=== PATIENT | female | born 1985 | race Caucasian/White ===

== ENCOUNTER → 2018-11-22 15:48 | Outpatient (CLI) | payer MEDICAID, SELFPAY ==
[2018-11-22 16:10] LABS: Basophils % 0.6 % (0.1-2.0); Eosinophils # 0.3 K/mm3 (0.0-0.4); Eosinophils % 4.7 % (0.1-12.0); Hematocrit 44.5 % (37.0-47.0); Hemoglobin 14.1 g/dL (12.2-16.2); Lymphocytes # 2.3 K/mm3 (0.7-4.5); Lymphocytes % 41.3 % (10-50); Mean Corpuscular HGB Conc 31.8 g/dL (31.8-35.4); Mean Corpuscular Hemoglobin 28.7 pg (27.0-31.2); Mean Corpuscular Volume 90.5 fl (81-99); Mean Platelet Volume 8.4 fl (7.4-10.4); Monocytes # 0.4 K/mm3 (0.1-1.0); Monocytes % 7.5 % (1.7-9.3); Neutrophils # 2.6 K/mm3 (1.8-7.8); Platelet Count 245 K/mm3 (142-424); Red Blood Count 4.91 M/mm3 (4.20-5.40); Red Cell Distribution Width 14.2 % (11.5-17.5); White Blood Count 5.6 K/mm3 (4.8-10.8)
[2018-11-22 18:02] LABS: Thyroid Stimulating Hormone 2.42 uIU/ml (0.358-3.740)
== END ==
PROVIDERS: Visit Provider Obstetrics & Gynecology
DX: Z01.419 Encounter for gynecological examination (general) (routine) without abnormal findings (principal); N97.9 Female infertility, unspecified
CPT/HCPCS: 36415; 84443; 85025

== ENCOUNTER → 2018-11-26 12:37 | Outpatient (CLI) | payer MEDICAID, SELFPAY ==
--- NOTE | 2018-11-26 12:39 | US_ITS ---
PROCEDURE: US TRANSVAGINAL CLINICAL INDICATION: pelvic pain COMPARISON: No exams were available for comparison FINDINGS: Uterus is 9 by by 6 cm with a combined endometrial thickness 1 cm. There is heterogeneous area of echogenicity along the anterior aspect the body of the uterus at with a 19 mm fibroid anteriorly mm consistent fibroid. Uterus is otherwise unremarkable. The right ovary is 4 x 2.6 cm and contains a 2.7 cm cyst. Blood flow is present. The left ovary is 2.9 x 1.5 cm having small follicles with blood flow noted. There is a an 8 mm nabothian cyst. No cul-de-sac fluid is evident. IMPRESSION: 1. Mildly prominent uterus with endometrial thickness upper limits of normal 2. 2.7 cm right ovarian cyst Dictated by: Pasquale Martinez MD 11/30/2018 10:05 Signed by: <Electronically signed by Pasquale Martinez MD in [place]> 11/30/2018 10:05
== END ==
PROVIDERS: Visit Provider Obstetrics & Gynecology
DX: R10.2 Pelvic and perineal pain (principal)
CPT/HCPCS: 76830

== ENCOUNTER → 2018-12-09 13:56 | Outpatient (CLI) | payer MEDICAID, SELFPAY ==
[2018-12-09 14:01] LABS: Microscopic, Urine URINE MICROSCOPIC (MICROSCOPIC)
[2018-12-09 15:32] LABS: Basophils # 0.1 K/mm3 (0-0.2); Eosinophils # 0.3 K/mm3 (0.0-0.4); Hematocrit 45.8 % (37.0-47.0); Hemoglobin 14.3 g/dL (12.2-16.2); Lymphocytes # 3.7 K/mm3 (0.7-4.5); Lymphocytes % 50.1 % (10-50); Mean Corpuscular HGB Conc 31.2 g/dL (31.8-35.4); Mean Corpuscular Hemoglobin 27.9 pg (27.0-31.2); Mean Corpuscular Volume 89.5 fl (81-99); Mean Platelet Volume 7.9 fl (7.4-10.4); Monocytes # 0.5 K/mm3 (0.1-1.0); Monocytes % 6.5 % (1.7-9.3); Neutrophils # 2.9 K/mm3 (1.8-7.8); Neutrophils % 38.3 % (37.0-80.0); Platelet Count 390 K/mm3 (142-424); Red Blood Count 5.11 M/mm3 (4.20-5.40); Red Cell Distribution Width 14.2 % (11.5-17.5); White Blood Count 7.4 K/mm3 (4.8-10.8)
[2018-12-09 15:34] LABS: MANUAL DIFFERENTIAL MANUAL DIFFERENTIAL (MANUAL DIFF)
[2018-12-09 15:38] LABS: Appearance,Urine CLOUDY (Clear); Bilirubin,Urine Negative (Negative); Blood, Urine 3+ (Negative); Color,Urine RED (Yellow); Glucose,Urine (UA) Negative (Negative); Ketones,Urine TRACE (Negative); Leukocyte Esterase,Urine 1+ (Negative); Nitrate,Urine POSITIVE (Negative); PH,Urine 6.5 (5.0-8.5); Protein,Urine 3+ (Negative); Specific Gravity, Urine 1.025 (1.005-1.030)
[2018-12-09 15:40] LABS: HCG Qualitative, Serum Negative (Negative)
[2018-12-09 15:54] LABS: Alanine Aminotransferase 166 U/L (12-78); Albumin Level 3.5 gm/dL (3.4-5.0); Albumin/Globulin Ratio 0.9 (1.1-1.8); Alkaline Phosphatase 183 U/L (46-116); Anion Gap 8.7 mEq/L (5-15); Aspartate Amino Transferase 61 U/L (15-37); Bilirubin,Total 0.4 mg/dL (0.2-1.0); Blood Urea Nitrogen 13 mg/dL (7-18); Calcium 8.7 mg/dL (8.5-10.1); Carbon Dioxide 31 mmol/L (21.0-32.0); Chloride 103 mmol/L (98-107); Creatinine,Serum 0.76 mg/dL (0.55-1.02); Estimated Glomerular Filt Rate 87 ml/min (>60); GFR (African American) 105 ML/MIN (>60); Glucose 69 mg/dL (74-106); Potassium 4.7 mmoL/L (3.5-5.1); Sodium 138 mmol/L (136-145); Total Protein,Serum 7.5 gm/dL (6.4-8.2)
[2018-12-09 16:00] LABS: Bacteria,Urine 1+ /lpf; RBC,Urine TNTC #/hpf (0-3); Squamous Epithelial Cell,Urine Occasional #/hpf (0-5)
[2018-12-09 16:06] LABS: Eosinophils % 2 % (0-3); Hypochromasia 1+; Lymphocytes % 52 % (10-50); Monocytes % 4 % (2-9); Neutrophils % 38 % (42-76); Total Cells Counted 100
[2018-12-09 16:07] LABS: Platelet Estimate Normal
== END ==
PROVIDERS: Visit Provider Obstetrics & Gynecology
DX: N93.8 Other specified abnormal uterine and vaginal bleeding (principal); N73.6 Female pelvic peritoneal adhesions (postinfective)
CPT/HCPCS: 36415; 80053; 81001; 84703; 85007; 85025; 87086

== ENCOUNTER → 2019-02-10 10:47 | Outpatient (CLI) | payer MEDICAID, SELFPAY ==
[2019-02-10 11:23] LABS: Basophils # 0.1 K/mm3 (0-0.2); Basophils % 0.7 % (0.1-2.0); Eosinophils # 0.4 K/mm3 (0.0-0.4); Eosinophils % 5.9 % (0.1-12.0); Hematocrit 47.9 % (37.0-47.0); Hemoglobin 14.8 g/dL (12.2-16.2); Mean Corpuscular HGB Conc 30.9 g/dL (31.8-35.4); Mean Corpuscular Hemoglobin 28.4 pg (27.0-31.2); Mean Platelet Volume 8.8 fl (7.4-10.4); Monocytes # 0.4 K/mm3 (0.1-1.0); Monocytes % 6.4 % (1.7-9.3); Neutrophils # 2.9 K/mm3 (1.8-7.8); Platelet Count 254 K/mm3 (142-424); Red Blood Count 5.21 M/mm3 (4.20-5.40); Red Cell Distribution Width 14.6 % (11.5-17.5); White Blood Count 6.8 K/mm3 (4.8-10.8)
[2019-02-10 13:03] LABS: Alanine Aminotransferase 278 U/L (12-78); Albumin Level 3.9 gm/dL (3.4-5.0); Alkaline Phosphatase 200 U/L (46-116); Anion Gap 11.2 mEq/L (5-15); Aspartate Amino Transferase 94 U/L (15-37); Bilirubin,Total 0.3 mg/dL (0.2-1.0); Blood Urea Nitrogen 14 mg/dL (7-18); Calcium 9.1 mg/dL (8.5-10.1); Carbon Dioxide 30 mmol/L (21.0-32.0); Chloride 102 mmol/L (98-107); Creatinine,Serum 0.72 mg/dL (0.55-1.02); Estimated Glomerular Filt Rate 92 ml/min (>60); GFR (African American) 112 ML/MIN (>60); Globulin 3.9 gm/dl (1.3-3.2); Glucose 85 mg/dL (74-106); Potassium 4.2 mmoL/L (3.5-5.1); Sodium 139 mmol/L (136-145); Total Protein,Serum 7.8 gm/dL (6.4-8.2)
[2019-02-10 13:05] LABS: C-Reactive Protein < 0.2 mg/dL (0.0-0.9)
[2019-02-10 13:55] LABS: Erythrocyte Sedimentation Rate 8 mm/hr (0-20)
[2019-02-10 15:04] LABS: Amphetamine/Metha Screen,Urine Negative ng/mL (<1000); Barbiturates Screen,Urine Negative ng/mL (<200); Benzodiazepines Screen,Urine Negative ng/mL (<200); Cannabinoid Screen,Urine Negative ng/mL (<50); Cocaine Screen,Urine Negative ng/mL (<300); Methadone Screen,Urine Negative ng/mL (<300); Opiate Screen,Urine Negative ng/mL (<300); Phencyclidine Screen,Urine Negative ng/mL (<25)
== END ==
PROVIDERS: Visit Provider Nurse Practitioner Family
DX: Z86.19 Personal history of other infectious and parasitic diseases (principal); Z79.899 Other long term (current) drug therapy
CPT/HCPCS: 36415; 80053; 80305; 85025; 85651; 86140

== ENCOUNTER → 2019-02-23 17:03 | Outpatient (CLI) | payer MEDICAID, SELFPAY ==
--- NOTE | 2019-02-23 17:09 | XR_ITS ---
PROCEDURE: XR THORACIC SPINE 3V CLINICAL INDICATION: HX infection Upper back pain COMPARISON: No exams were available for comparison FINDINGS: There is minimal midthoracic scoliosis convex left. There is fusion of the T8 and T9 vertebral body with kyphosis at this level and some increased sclerosis of the T8-T9 vertebral body. There are mild degenerative changes in the upper thoracic spine. No acute fracture or dislocation. No lytic or blastic change. 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
== END ==
PROVIDERS: PCP Emergency Medicine; Visit Provider Nurse Practitioner Family
DX: M46.20 Osteomyelitis of vertebra, site unspecified (principal)
CPT/HCPCS: 72072

== ENCOUNTER → 2019-03-30 15:36 | Outpatient (CLI) | payer MEDICAID, SELFPAY ==
[2019-03-30 17:13] LABS: Urine Pregnancy, HCG Qual. Negative (Negative)
[2019-03-30 17:28] LABS: Basophils % 0.6 % (0.1-2.0); Eosinophils # 0.3 K/mm3 (0.0-0.4); Eosinophils % 5.7 % (0.1-12.0); Hemoglobin 14.9 g/dL (12.2-16.2); Lymphocytes # 2.3 K/mm3 (0.7-4.5); Lymphocytes % 40.2 % (10-50); Mean Corpuscular HGB Conc 32.4 g/dL (31.8-35.4); Mean Corpuscular Hemoglobin 28.8 pg (27.0-31.2); Mean Corpuscular Volume 88.8 fl (81-99); Mean Platelet Volume 9.4 fl (7.4-10.4); Monocytes # 0.4 K/mm3 (0.1-1.0); Monocytes % 6.5 % (1.7-9.3); Neutrophils # 2.7 K/mm3 (1.8-7.8); Platelet Count 249 K/mm3 (142-424); Red Blood Count 5.18 M/mm3 (4.20-5.40); Red Cell Distribution Width 13.8 % (11.5-17.5); White Blood Count 5.8 K/mm3 (4.8-10.8)
[2019-03-30 17:33] LABS: INR 0.92 (0.9-1.1); Prothrombin Time 9.6 seconds (9.4-11.8)
[2019-03-30 18:57] LABS: Alanine Aminotransferase 171 U/L (12-78); Albumin Level 3.1 gm/dL (3.4-5.0); Albumin/Globulin Ratio 0.9 (1.1-1.8); Alkaline Phosphatase 209 U/L (46-116); Anion Gap 11.7 mEq/L (5-15); Aspartate Amino Transferase 74 U/L (15-37); Bilirubin,Total 0.2 mg/dL (0.2-1.0); Blood Urea Nitrogen 8 mg/dL (7-18); Calcium 8.3 mg/dL (8.5-10.1); Carbon Dioxide 30 mmol/L (21.0-32.0); Chloride 106 mmol/L (98-107); Creatinine,Serum 0.81 mg/dL (0.55-1.02); Estimated Glomerular Filt Rate 80 ml/min (>60); GFR (African American) 97 ML/MIN (>60); Globulin 3.5 gm/dl (1.3-3.2); Glucose 70 mg/dL (74-106); Potassium 4.7 mmoL/L (3.5-5.1); Sodium 143 mmol/L (136-145); Total Protein,Serum 6.6 gm/dL (6.4-8.2)
[2019-04-01 10:09] LABS: Hep B Core Ab, Total Negative (Negative); Hep Be Ag Negative (Negative)
[2019-04-01 16:29] LABS: HIV Screen 4th Generation wRfx Non Reactive (Non Reactive); Hep A Ab, Total Positive (Negative); Hepatitis B Surf Ab Quant <3.1 mIU/mL (Immunity>9.9)
[2019-04-02 03:42] LABS: ALT (SGPT) P5P 181 IU/L (0-40); Alpha 2-Macroglobulins, Qn 185 mg/dL (110-276); Apolipoprotein A-1 143 mg/dL (116-209); Bilirubin, Total 0.1 mg/dL (0.0-1.2); Fibrosis Score 0.04 (0.00-0.21); GGT 77 IU/L (0-60); Necroinflammat Activity Grade A3-Severe activity (.); Necroinflammat Activity Score 0.71 (0.00-0.17)
[2019-04-02 05:42] LABS: Haptoglobin 185 mg/dL (33-278)
== END ==
PROVIDERS: Visit Provider Internal Medicine
DX: B18.2 Chronic viral hepatitis C (principal)
CPT/HCPCS: 36415; 80053; 81025; 81596; 85025; 85610; 86703; 86704; 86706; 86708; 87350; 87522; G0432

== ENCOUNTER 2020-06-02 20:04 | Emergency (ER) | payer MEDICAID, SELFPAY ==
[2020-06-02 20:10] VITALS: BP 130/82; PULSE 89; RESP 18; TEMP 37; O2SAT 98; BMI 26.6
--- NOTE | 2020-06-02 20:30 | HMH.EDUTC ---
[facility] [place] Clinical Impression: Dental abscess Disposition: Home, Self-Care Condition on Discharge: Good Instructions: Tooth Abscess, Amoxicillin and Clavulanic Acid Additional Instructions: Take antibiotics as prescribed Make sure to follow up with Dentist as soon as possible, call on Thursday for appointment Over the counter Motrin as directed on package may help with pain, may take Tylenol in between doses of Ibuprofen if something else is needed for pain Follow up with your Family Doctor if no improvement or any worsening of symptoms Return if needed Straight to ER if any life threatening symptoms Prescriptions: Amoxicillin/Potassium Clav [Augmentin 875-125 Tablet] 1 tab PO Q12H 10 Days #20 tab Transmission Status: Received [id number] Referrals: Tyson Diaz [Primary Care Provider] - As needed Kory Dalal [Referring] - Time of Disposition: 20:37 Medical Decision Making - Mirza Inquiry Pt receiving controlled substance: No Mirza was queried for this patient: No Vital Signs: 06/02/20 20:10 06/02/20 20:39 Temperature 98.6 F 98.6 F Temperature Source Oral Pulse Rate 89 Pulse Rate [Right Brachial] 89 Respiratory Rate 18 18 Blood Pressure 130/82 Blood Pressure [Right Arm] 130/82 Blood Pressure Mean [Right Arm] 98 Blood Pressure Source [Right Arm] Automatic Cuff Blood Pressure Position [Right Arm] Sitting 02 Sat by Pulse Oximetry 98 Oxygen Delivery Method Room Air Orders (Tests/Meds): ED MEDICATIONS Discontinued Medications Generic Name Dose Route Start Last Admin Trade Name Freq PRN Reason Stop Dose Admin Amoxicillin/Clavulanate Potassium 1 each 06/02/20 20:33 06/02/20 20:43 Amoxicillin/Pot Clavulan 500mg Tablet PO 06/02/20 20:34 1 each ONCE ONE Administration Protocol [facility] [place] - General Stated complaint: dental pain Time Seen by Provider: 06/02/20 20:31 Mode of Arrival: Ambulatory Source of Information: Patient Limitations: No Limitations Description of Symptoms (Recalled from Triage Doc. by RN): PATIENT C/O SWELLING TO RIGHT SIDE OF FACE X 2 DAYS HEENT Symptoms (Recalled from RN notes): Yes Resp Symptoms (Recalled from RN notes): No Skin Symptoms (Recalled from RN notes): No MS Symptoms (Recalled from RN notes): No Functional Status (Recalled from RN notes): WNL - History of Present Illness Provider Complaint: Patient states that she thinks she has an abscessed tooth States that she has been having swelling to the right side of her face States that she has multiple decaying and broken teeth on her top right gum area and states that swelling has continued to get worse States that doesnt have much pain except when she bites into something - Related Data Previous Rx's Medication Instructions Recorded escitalopram oxalate 10 mg tablet 20 mg PO DAILY 30 Days #60 tab 06/08/19 hydroxyzine pamoate 25 mg capsule 25 mg PO QID PRN 30 Days #120 cap 06/08/19 Amoxicillin/Potassium Clav 1 tab PO Q12H 10 Days #20 tab 06/02/20 [Augmentin 875-125 Tablet] Allergies Allergy/AdvReac Type Severity Reaction Status Date / Time No Known Allergies Allergy Verified 06/08/19 10:53 - Worker's Comp Is this a Worker's Comp case?: No [facility] History - Hepatitis A Screen Drug use history?: No High risk sexual behaviors?: No History of sexually transmitted infection?: No Currently employed?: No Childcare worker?: No Do you have indoor plumbing?: Yes Do you have electricity?: Yes Attestation statement:: This patient has been screened for Hepatitis A risk factors. 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 of STD. HPV Other Surgeries: Yes: Appendectomy. No: Pacemaker Amputation: No Fractures: No Comment: 2009-Open Jc (Fridayu
[2020-06-02 20:39] VITALS: BP 130/82; PULSE 89; RESP 18; TEMP 37; O2SAT 98
== END 2020-06-02 20:45 | disposition home or self-care (01) ==
PROVIDERS: Emergency Provider Nurse Practitioner; PCP Pediatrics
DX: K04.7 Periapical abscess without sinus (principal); K02.9 Dental caries, unspecified; F19.11 Other psychoactive substance abuse, in remission; F17.210 Nicotine dependence, cigarettes, uncomplicated
CPT/HCPCS: 99202; G0463

== ENCOUNTER 2020-07-25 17:31 | Emergency (ER) | payer MEDICAID, SELFPAY ==
[2020-07-25 17:35] VITALS: BP 119/71; PULSE 89; RESP 20; TEMP 36.9; O2SAT 97; BMI 29.5
[2020-07-25 18:12] VITALS: BP 119/71; PULSE 89; RESP 20; TEMP 36.9; O2SAT 97
--- NOTE | 2020-07-25 18:16 | HMH.EDUTC ---
[facility] [place] Clinical Impression: Exposure to COVID-19 virus Disposition: Home, Self-Care Condition on Discharge: Good Instructions: Preventing the Spread of Coronavirus Discharge Instructions Additional Instructions: Drink plenty of fluids. Take tylenol for pain or fever. Return if you begin to have difficulty breathing. Follow up with your regular doctor. GO TO THE ER FOR ANY WORSENING SYMPTOMS Referrals: PCP,No [Primary Care Provider] - Time of Disposition: 18:18 Medical Decision Making - Medical Records Medical records reviewed: No: I reviewed the patient's medical records. - Mirza Inquiry Pt receiving controlled substance: No Vital Signs: 07/25/20 17:35 07/25/20 18:12 Temperature 98.5 F 98.5 F Temperature Source Oral Pulse Rate 89 Pulse Rate [Right Brachial] 89 Respiratory Rate 20 20 Blood Pressure 119/71 Blood Pressure [Right Arm] 119/71 Blood Pressure Mean [Right Arm] 87 Blood Pressure Source [Right Arm] Automatic Cuff Blood Pressure Position [Right Arm] Sitting 02 Sat by Pulse Oximetry 97 Oxygen Delivery Method Room Air [facility] [place] - General Stated complaint: COVID test Time Seen by Provider: 07/25/20 18:17 Mode of Arrival: Ambulatory Source of Information: Patient Limitations: No Limitations Description of Symptoms (Recalled from Triage Doc. by RN): COVID TEST FOR WORK. NO KNOWN EXPOSURE OR SYMPTOMS HEENT Symptoms (Recalled from RN notes): No Resp Symptoms (Recalled from RN notes): No Skin Symptoms (Recalled from RN notes): No MS Symptoms (Recalled from RN notes): No Functional Status (Recalled from RN notes): WNL - History of Present Illness Provider Complaint: She is here to have a covid test. She denies any symptoms or concerns. Her significant other was told by his job to have a covid test. She lives with him, so she needs one too. - Related Data Previous Rx's Medication Instructions Recorded escitalopram oxalate 10 mg tablet 20 mg PO DAILY 30 Days #60 tab 06/08/19 hydroxyzine pamoate 25 mg capsule 25 mg PO QID PRN 30 Days #120 cap 06/08/19 Amoxicillin/Potassium Clav 1 tab PO Q12H 10 Days #20 tab 06/02/20 [Augmentin 875-125 Tablet] Allergies Allergy/AdvReac Type Severity Reaction Status Date / Time No Known Allergies Allergy Verified 06/08/19 10:53 - Worker's Comp Is this a Worker's Comp case?: No [facility] History - Hepatitis A Screen Drug use history?: No High risk sexual behaviors?: No History of sexually transmitted infection?: No Currently employed?: No Childcare worker?: No Do you have indoor plumbing?: Yes Do you have electricity?: Yes Attestation statement:: This patient has been screened for Hepatitis A risk factors. 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 of STD. HPV Other Surgeries: Yes: Appendectomy. No: Pacemaker Amputation: No Fractures: No Comment: 2009-Open Jc (ruptured). 12/14/18-D&C,Dx. [facility] [place], [facility] [place] - Social History Smoking Status: Current every day smoker Tobacco Type: cigarettes # Packs/Day (cigarettes): 2 Alcohol Intake: never Alcohol Intake Frequency:: other Substance Use Type: former substance user, heroin, methamphetamine Occupational Status: other Housing: house Family Hx:: No significant family history Comment: 2006-preg #1-F, , no comp, bottle fed ROS Obtained: Yes All systems reviewed & no additional complaints - Constitutional Constitutional: Reports system reviewed and no additional complaints, except as docu - Eyes Eyes: Reports system reviewed and no additional complaints, except as docu - ENT Ears, Nose, Mouth, and Throat: Reports system reviewed and no additional complaints, except as docu - Cardiovascular Cardiovascular: Reports system reviewed and no fanta
== END 2020-07-25 18:25 | disposition home or self-care (01) ==
PROVIDERS: Emergency Provider Nurse Practitioner Family
DX: Z20.822 Contact with and (suspected) exposure to COVID-19 (principal); F17.210 Nicotine dependence, cigarettes, uncomplicated; K73.9 Chronic hepatitis, unspecified
CPT/HCPCS: 99202; G0463; U0003

== ENCOUNTER 2020-07-27 14:11 | Emergency (ER) | payer MEDICAID, SELFPAY ==
[2020-07-27 14:30] VITALS: BP 139/99; PULSE 115; RESP 20; TEMP 36.7; O2SAT 95; BMI 29.5
--- NOTE | 2020-07-27 14:55 | HMH.EDUTC ---
[facility] – [place] Disposition Clinical Impression: Encounter for laboratory testing for COVID-19 virus Disposition: Home, Self-Care Condition on Discharge: Good Instructions: DI for COVID-19 (Suspected or Confirmed ), Preventing the Spread of Coronavirus Discharge Instructions, Guaifenesin Additional Instructions: *Monitor Temp, Over the counter Motrin or Tylenol as directed/as needed Tylenol every 4 hours and Motrin every 6 hours (as long as your family doctor has told you that you can take it) for fever or pain. and straight to ER if unable to lower temp less than 101.0 after medication given *Warm salt water gargles may help to soothe the throat *Throat Lozenges *Warm fluids like tea with honey may help to soothe the throat *Sleep elevated *Humidifier/Vaporizer *Flonase 2 sprays in each nostril daily but be aware that it may take 2-3 days before you notice improvement Follow up IMMEDIATELY for new or worsening symptoms or no Noticeable improvement over the next 48-72 hours. 911 for difficulty breathing or swallowing You were tested for today for COVID19 your test result should be back in the next 24-48 hours, you may call to the [facility] to see if your test results are back in the next 48 hours [phone] [facility] hours are 9am-9pm You was given a handout with instructions for Self Quarantine and Self isolation for while you wait on test results and what to do if they are positive If you are positive the Health Dept will be contacting you also Prescriptions: guaiFENesin [Mucinex 600mg tablet] 1 - 2 tab PO Q12HP PRN #20 tab.er.12h PRN Reason: Congestion [facility]: [id number] Fluticasone Propionate [Flonase 50mcg nasal spray 16gm] 1 spr NS DAILY #1 bottle Transmission Status: [id number] Referrals: PCP,No [Primary Care Provider] - As needed Forms: Work/School Release Time of Disposition: 15:02 Medical Decision Making - Mirza Inquiry Pt receiving controlled substance: No Mirza was queried for this patient: No Vital Signs: 07/27/20 14:30 Temperature 98.1 F Temperature Source Oral Pulse Rate [Right Brachial] 115 H Respiratory Rate 20 Blood Pressure [Right Arm] 139/99 H Blood Pressure Mean [Right Arm] 112 Blood Pressure Source [Right Arm] Automatic Cuff Blood Pressure Position [Right Arm] Sitting 02 Sat by Pulse Oximetry 95 Oxygen Delivery Method Room Air [facility] [place] HPI - General Stated complaint: Covid Test Time Seen by Provider: 07/27/20 14:55 Mode of Arrival: Ambulatory Source of Information: Patient Limitations: No Limitations Description of Symptoms (Recalled from Triage Doc. by RN): C/O ALLERGY SYMPTOMS. NEEDS A SECOND NEGATIVE COVID TEST TO RETURN TO WORK HEENT Symptoms (Recalled from RN notes): No Resp Symptoms (Recalled from RN notes): No Skin Symptoms (Recalled from RN notes): No MS Symptoms (Recalled from RN notes): No Functional Status (Recalled from RN notes): WNL - History of Present Illness Provider Complaint: Patient states that she took a COVID test on Thu and a rapid test was positive but she came here to get a test to confirm and it was negative States that her work is wanting her to get tested again to make sure she is still negative State that since then she has been having cough, sinus pressure and drainage Not sure if she may have an infection or its her allergies - Related Data Home Medications Medication Instructions Recorded Confirmed Venlafaxine HCl [Venlafaxine HCl 150 mg PO DAILY 07/27/20 07/27/20 ER] Previous Rx's Medication Instructions Recorded Fluticasone Propionate [Flonase 1 spr NS DAILY #1 bottle 07/27/20 50mcg nasal spray 16gm] guaiFENesin [Mucinex 600mg tablet] 1 - 2 tab PO Q12HP PRN #20 07/27/20 tab.er.12h Allergies Allergy/AdvReac Type Severity Reaction Status Date / Time No Known Allergies Allergy Verified 06/08/19 10:53 - Worker's Comp Is this a Worker's Comp case?: No [facility] History - Hepatiti
[2020-07-27 15:13] VITALS: BP 139/99; PULSE 115; RESP 20; TEMP 36.7; O2SAT 95
== END 2020-07-27 15:21 | disposition home or self-care (01) ==
PROVIDERS: Emergency Provider Nurse Practitioner
DX: Z20.822 Contact with and (suspected) exposure to COVID-19 (principal)
CPT/HCPCS: 99202; G0463; U0003

== ENCOUNTER 2021-02-12 13:26 | Emergency (ER) | payer MEDICAID, SELFPAY ==
[2021-02-12 15:02] VITALS: BP 149/95; PULSE 107; RESP 18; TEMP 36.9; O2SAT 97; BMI 29.5
--- NOTE | 2021-02-12 15:15 | HMH.EDUTC ---
[facility] [place] Dis[place] Clinical Impression: Viral syndrome, Exposure to COVID-19 virus Disposition: Home, Self-Care Condition on Discharge: Good Instructions: DI for Viral Syndrome, DI for COVID-19 (Suspected or Confirmed ), Preventing the Spread of Coronavirus Discharge Instructions Additional Instructions: Drink plenty of fluids. Take tylenol or ibuprofen for pain or fever. Take the medications as directed. Follow up with your regular doctor. GO TO THE ER FOR ANY WORSENING SYMPTOMS Quarantine until you know the results of your covid-19 test. If it is positive, the health department should call you and give you further instructions about your length of Quarantine and other things. Notify your school or workplace of your results and follow their instructions regarding return to work/school. Prescriptions: Brompheniramine/Pseudoephed/Dm [Bromfed Dm Cough Syrup] 5 ml PO Q6HP PRN #240 ml PRN Reason: Cough Transmission Status: Received by [facility]/pharmacy #[id number] Referrals: Provider,Referral, [Primary Care Provider] - Forms: Work/School Release Time of Disposition: 15:38 Medical Decision Making - Medical Records Medical records reviewed: No: I reviewed the patient's medical records. - Mirza Inquiry Pt receiving controlled substance: No Vital Signs: 02/12/21 15:02 02/12/21 15:29 Temperature 98.5 F 98.5 F Temperature Source Oral Pulse Rate 107 H Pulse Rate [Left] 107 H Respiratory Rate 18 18 Blood Pressure 149/95 H Blood Pressure [Right Arm] 149/95 H Blood Pressure Mean [Right Arm] 113 02 Sat by Pulse Oximetry 97 - Lab Data Lab results reviewed: Yes: I reviewed the patient's lab results. Lab Results 02/12/21 15:19: Strep Scn Rapid Clinic Negative Orders (Tests/Meds): ORDERS Category Date Time Status Covid-19 Nasal PCR ([facility]) Routine Lab 02/12/21 14:55 Received Strep Screen Confirmation Routine Micro 02/12/21 15:19 Received [facility] [place] HPI - General Stated complaint: exposure with symptoms Time Seen by Provider: 02/12/21 15:16 Mode of Arrival: Ambulatory Source of Information: Patient Limitations: No Limitations Description of Symptoms (Recalled from Triage Doc. by RN): pt c/o chills, fever, cough, diarrhea, nasal drainage and congestion. pt was exposed to covid positive brother. HEENT Symptoms (Recalled from RN notes): Yes (nasal drainage/ congestion) Resp Symptoms (Recalled from RN notes): Yes (cough) Skin Symptoms (Recalled from RN notes): No MS Symptoms (Recalled from RN notes): No Functional Status (Recalled from RN notes): chills and fever - History of Present Illness Provider Complaint: She is c/o feeling bad since yesterday. She has had cough, body aches, sore throat, and she just generally feels bad. She has been exposed to covid-19 - Related Data Home Medications Medication Instructions Recorded Confirmed Venlafaxine HCl [Venlafaxine HCl 150 mg PO DAILY 07/27/20 07/27/20 ER] Previous Rx's Medication Instructions Recorded Fluticasone Propionate [Flonase 1 spr NS DAILY #1 bottle 07/27/20 50mcg nasal spray 16gm] guaiFENesin [Mucinex 600mg tablet] 1 - 2 tab PO Q12HP PRN #20 07/27/20 tab.er.12h Brompheniramine/Pseudoephed/Dm 5 ml PO Q6HP PRN #240 ml 02/12/21 [Bromfed Dm Cough Syrup] Allergies Allergy/AdvReac Type Severity Reaction Status Date / Time No Known Allergies Allergy Verified 06/08/19 10:53 - Worker's Comp Is this a Worker's Comp case?: No [facility] History - Hepatitis A Screen Drug use history?: No High risk sexual behaviors?: No History of sexually transmitted infection?: No Currently employed?: No Childcare worker?: No Do you have indoor plumbing?: Yes Do you have electricity?: Yes Attestation statement:: This patient has been screened for Hepatitis A risk factors. I have reviewed the patient's past medical history: Yes Medical History: Reports:: Hepatitis, MRSA Denies:: Diabetes Mellitus Type 1, Diabetes
[2021-02-12 15:27] LABS: UTC Strep Screen (Rapid) Negative (Negative)
[2021-02-12 15:29] VITALS: BP 149/95; PULSE 107; RESP 18; TEMP 36.9
== END 2021-02-12 15:54 | disposition home or self-care (01) ==
PROVIDERS: Emergency Provider Nurse Practitioner Family
DX: B34.9 Viral infection, unspecified (principal); Z20.822 Contact with and (suspected) exposure to COVID-19; F17.210 Nicotine dependence, cigarettes, uncomplicated
CPT/HCPCS: 87880; 99203; C9803; G0463; U0003; U0005

== ENCOUNTER 2021-03-03 14:12 | Emergency (ER) | payer MEDICAID, SELFPAY ==
--- NOTE | 2021-03-03 15:44 | HMH.EDUTC ---
[facility] [place] Clinical Impression: Exposure to COVID-19 virus Disposition: Home, Self-Care Condition on Discharge: Good Instructions: DI for COVID-19 (Suspected or Confirmed ), Preventing the Spread of Coronavirus Discharge Instructions Additional Instructions: Drink plenty of fluids. Take tylenol for pain or fever. Return if you begin to have difficulty breathing. Follow up with your regular doctor. GO TO THE ER FOR ANY WORSENING SYMPTOMS Quarantine until you know the results of your covid-19 test. If it is positive, the health department should call you and give you further instructions about your length of Quarantine and other things. Notify your school or workplace of your results and follow their instructions regarding return to work/school. Follow up with your primary care physician regarding your blood pressure. Referrals: Provider,Referral, [Primary Care Provider] - Time of Disposition: 16:39 Medical Decision Making - Medical Records Medical records reviewed: No: I reviewed the patient's medical records. - Mirza Inquiry Pt receiving controlled substance: No Vital Signs: 03/03/21 15:45 03/03/21 17:03 Temperature 98.3 F 98.3 F Temperature Source Oral Pulse Rate 83 Pulse Rate [Right Brachial] 83 Respiratory Rate 18 16 Blood Pressure 200/100 H Blood Pressure [Right Arm] 209/134 H Blood Pressure Mean [Right Arm] 159 Blood Pressure Source [Right Arm] Automatic Cuff Blood Pressure Position [Right Arm] Sitting 02 Sat by Pulse Oximetry 97 Oxygen Delivery Method Room Air Medical Decision Narrative: I rechecked her blood pressure with a manual cuff and it was 164/88. [facility] [place] - General Stated complaint: covid test Time Seen by Provider: 03/03/21 15:44 - History of Present Illness Provider Complaint: She denies complaints at this time. She was exposed to covid 4 days ago. She has not been vaccinated. - Related Data Home Medications Medication Instructions Recorded Confirmed Venlafaxine HCl [Venlafaxine HCl 150 mg PO DAILY 07/27/20 07/27/20 ER] Previous Rx's Medication Instructions Recorded Fluticasone Propionate [Flonase 1 spr NS DAILY #1 bottle 07/27/20 50mcg nasal spray 16gm] guaiFENesin [Mucinex 600mg tablet] 1 - 2 tab PO Q12HP PRN #20 07/27/20 tab.er.12h Brompheniramine/Pseudoephed/Dm 5 ml PO Q6HP PRN #240 ml 02/12/21 [Bromfed Dm Cough Syrup] Allergies Allergy/AdvReac Type Severity Reaction Status Date / Time No Known Allergies Allergy Verified 06/08/19 10:53 [facility] History - Hepatitis A Screen Attestation statement:: This patient has been screened for Hepatitis A risk factors. 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 of STD. HPV Other Surgeries: Yes: Appendectomy. No: Pacemaker Amputation: No Fractures: No Comment: 2009-Open Jc (ruptured). 12/14/18-D&C,Dx. [facility] [place] [facility] [place] - Social History Smoking Status: Current every day smoker Tobacco Type: cigarettes # Packs/Day (cigarettes): 2 Alcohol Intake: never Alcohol Intake Frequency:: other Substance Use Type: former substance user, heroin, methamphetamine Occupational Status: other Housing: house Family Hx:: No significant family history Comment: 2006-preg #1-F, , no comp, bottle fed ROS Obtained: Yes All systems reviewed & no additional complaints - Constitutional Constitutional: Reports system reviewed and no additional complaints, except as docu, Denies chills, Denies fever(s) - Eyes Eyes: Reports system reviewed and no additional complaints, except as docu - ENT Ears, Nose, Mouth, and Throat: Reports system reviewed and no additional complaints, except as docu - Cardiovascular Cardiovascular: Reports system reviewed and no additiona
[2021-03-03 15:45] VITALS: BP 209/134; PULSE 83; RESP 18; TEMP 36.8; O2SAT 97; BMI 29.5
[2021-03-03 17:03] VITALS: BP 200/100; PULSE 83; RESP 16; TEMP 36.8
== END 2021-03-03 17:03 | disposition home or self-care (01) ==
PROVIDERS: Emergency Provider Nurse Practitioner Family
DX: U07.1 COVID-19 (principal); F17.210 Nicotine dependence, cigarettes, uncomplicated; R03.0 Elevated blood-pressure reading, without diagnosis of hypertension
CPT/HCPCS: 99202; C9803; G0463; U0003; U0005